=== PATIENT | male | born 1975 | race Caucasian/White ===

== ENCOUNTER 2024-04-17 17:12 | Emergency (ER) | payer OTHER ==
[2024-04-17] MEDS ORDERED: Boostrix 0.5 ML (Tdap) VIAL (>/=7 yrs of age) ONE (17:31)
[2024-04-17] MEDS ORDERED: Bacitracin 1 PK ONE (18:15)
== END 2024-04-17 18:20 | disposition home or self-care (01) ==
LOC: NAV ERS 17:12
DX: S01.81XA Laceration without foreign body of other part of head, initial encounter (principal); F17.210 Nicotine dependence, cigarettes, uncomplicated; Z23 Encounter for immunization; W22.8XXA Striking against or struck by other objects, initial encounter
CPT/HCPCS: 12015; 90471; 90715